=== PATIENT | female | born 1985 | race African-American/Black ===

== ENCOUNTER 2021-07-07 18:12 | Emergency (ER) | payer OTHER ==
[2021-07-07 18:25] VITALS: BP 167/101
[2021-07-07] MEDS ORDERED: PSEUDOEPHEDRINE 30 MG TABLET PO STA (18:29)
--- NOTE | 2021-07-07 18:31 | ED Physician Documentation ---
History of Present Illness - Stated complaint Stated Complaint: SOA/FLU LIKE SYMPTOMS - Chief complaint Chief Complaint: General - History obtained from History obtained from: Patient - Additonal information Additional information: Otherwise healthy 35-year-old woman got sick yesterday with prominent sinus congestion, feeling like she had to think about breathing, and cough that is minimally productive. No fevers chills or body aches. Her is also sick with a viral illness. She is COVID vaccinated. Review of Systems Constitutional: denies: Fever, Chills Nose: reports: Rhinorrhea / runny nose, Congestion Throat: denies: Sore throat Respiratory: reports: Dyspnea, Cough PD PAST MEDICAL HISTORY - Present Medications Home Medications: Ambulatory Orders Medication Instructions Recorded Confirmed Albuterol Sulf [Ventolin Hfa 1 - 2 puffs INH Q4HR PRN #1 inhaler 07/07/21 Inhaler] Guaifenesin/Pseudoephedrne HCl 1 each PO BID PRN #20 ea 07/07/21 [Mucinex D ER 600-60 mg Tablet] - Allergies Allergies/Adverse Reactions: Allergies Allergy/AdvReac Type Severity Reaction Status Date / Time No Known Drug Allergies Allergy Verified 07/07/21 18:16 PD ED PE NORMAL - Vitals Vital signs reviewed: Yes - General General: Alert and oriented X 3, No acute distress - HEENT HEENT: PERRL, EOMI, Ears normal, Moist mucous membranes, Pharynx benign - Neck Neck: Supple, no meningeal sign, No bony TTP - Cardiac Cardiac: RRR, No murmur - Respiratory Respiratory: No respiratory distress, Clear bilaterally - Abdomen Abdomen: Non tender - Back Back: No CVA TTP, No spinal TTP - Derm Derm: Normal color, No rash - Extremities Extremities: No edema, No calf tenderness / cord - Neuro Neuro: Alert and oriented X 3, Normal speech Results - Vitals Vitals: Vital Signs - 24 hr 07/07/21 18:17 Temperature 36.9 C Heart Rate 72 Respiratory 18 Rate Blood Pressure 167/101 H O2 Saturation 98 Oxygen O2 Source Room air PD MEDICAL DECISION MAKING - ED course ED course: 35-year-old woman with viral upper respiratory infection, unlikely to be COVID given the lack of fevers or body aches, that said we will test and put her on home quarantine until complete. She may have a sinus infection this was discussed, but would not fit criteria per IDSA for antibiotic therapy for same. Departure - Departure Disposition: 01 Home, Self Care Clinical Impression: Viral URI Condition: Good Record reviewed to determine appropriate education?: Yes Instructions: ED Viral Syndrome Prescriptions: Albuterol Sulf [Ventolin Hfa Inhaler] 1 - 2 puffs INH Q4HR PRN #1 inhaler PRN Reason: Shortness Of Air/Wheezing Guaifenesin/Pseudoephedrne HCl [Mucinex D ER 600-60 mg Tablet] 1 each PO BID PRN #20 ea PRN Reason: congestion Comments: As discussed, it seems like you have a viral upper respiratory infection. Ret urn if you worsen or develop high fevers or fail to improve over the next week or so. I sent your prescription electronically to [facility] in [place]. You have a Covid test pending. You need to self quarantine until the result is done and negative. Do not leave your house. Do not get near anybody. The results should be done in 48 to 72 hours. We will call with a positive result, the fastest way to get a negative result for confirmation though is to go to the hospital website at [email or web address], click on the my [facility] tab and sign up for the patient portal. If any friends or family get sick and would like to have a Covid test done, but do not have signs or symptoms that would necessitate being hospitalized, there are multiple local options for Covid testing. [facility] keeps an updated list of testing and vaccination options at: [email or web address]. Forms: Activity restrictions
== END 2021-07-07 18:47 | disposition home or self-care (01) ==
LOC: ED 18:12
DX: J06.9 Acute upper respiratory infection, unspecified (principal); Z20.822 Contact with and (suspected) exposure to COVID-19
CPT/HCPCS: 87635; 99282; 99283; A9270